=== PATIENT | male | born 1940 | race Caucasian/White ===

== ENCOUNTER → 2021-02-09 11:44 | Outpatient (BNVA) | payer MEDICARE, SELFPAY | PROVIDERS: Visit Provider Internal Medicine | DX: Z20.822 Contact with and (suspected) exposure to COVID-19 (principal); J06.9 Acute upper respiratory infection, unspecified | CPT/HCPCS: 87635 ==

== ENCOUNTER 2021-02-13 23:56 | Inpatient (IN) | payer MEDICARE, SELFPAY ==
[2021-02-13 23:58] VITALS: BP 139/84; PULSE 83; RESP 18; TEMP 36.8; O2SAT 97; BMI 24.4
[2021-02-14] VITALS (9 sets, daily range): BP systolic 105–149; BP diastolic 50–77; PULSE 57–77; RESP 16–20; TEMP 36.3–37.4; O2SAT 93–98; BMI 22.1
--- NOTE | 2021-02-14 00:02 | CTR_ITS ---
PROCEDURE INFORMATION: Exam: CT Head Without Contrast Exam date and time: 02/14/2021 12:02 AM Age: 80 years old Clinical indication: Injury or trauma; Blunt trauma (contusions or hematomas); Altered mental status/memory loss; Patient HX: Patient reported to have fallen one week ago and C/O headache with low back pain. Patient presents to er this morning with AMS. Patient appears confused and will not follow instructions. Covid + with fever. Unable to obtain further history. TECHNIQUE: Imaging protocol: Computed tomography of the head without contrast. Radiation optimization: All CT scans at this facility use at least one of these dose optimization techniques: automated exposure control; mA and/or kV adjustment per patient size (includes targeted exams where dose is matched to clinical indication); or iterative reconstruction. COMPARISON: No relevant prior studies available. RADIATION DOSE METRICS: Total DLP (mGy-cm): 856.91 FINDINGS: Brain: Mild age-appropriate atrophy. No evidence of intracranial hemorrhage, mass effect, midline shift or extra-axial fluid collections. Midline structures are normal. Hodges-white matter differentiation is normal. Cerebral ventricles: No ventriculomegaly. Paranasal sinuses: Mucosal thickening in the ethmoid sinuses. Mastoid air cells: Visualized mastoid air cells are well aerated. Vasculature: Carotid atherosclerotic calcification. Bones/joints: There is an old right lamina papyracea fracture. Soft tissues: Unremarkable. CT/CT head wo con* [id number] IMPRESSION: No acute intracranial abnormality. Radiation Dose CTDIVOL = (mGy): DLP = 856.91 (mGy-cm)
--- NOTE | 2021-02-14 00:02 | XRR_ITS ---
PROCEDURE INFORMATION: Exam: XR Chest Exam date and time: 02/14/2021 12:02 AM Age: 80 years old Clinical indication: Patient HX: Fever. Covid +. Patient altered. Unable to obtain history. TECHNIQUE: Imaging protocol: XR of the chest. Views: 1 view. COMPARISON: No relevant prior studies available. FINDINGS: Lungs: Bilateral mid to lower lung field mixed interstitial and airspace infiltrates. Pleural spaces: Unremarkable. No pleural effusion. No pneumothorax. Heart/Mediastinum: Unremarkable. No cardiomegaly. Bones/joints: Unremarkable. XR/XR chest 1V portable [id number] IMPRESSION: Bilateral mid to lower lung field mixed interstitial and airspace infiltrates.
--- NOTE | 2021-02-14 00:02 | CTR_ITS ---
PROCEDURE INFORMATION: Exam: CT Lumbar Spine Without Contrast Exam date and time: 02/14/2021 12:02 AM Age: 80 years old Clinical indication: Injury or trauma; Blunt trauma (contusions or hematomas); Patient HX: Patient reported to have fallen one week ago and C/O headache with low back pain. Patient presents to er this morning with AMS. Patient appears confused and will not follow instructions. Covid + with fever. Unable to obtain further history. ; Additional info: Fall TECHNIQUE: Imaging protocol: Computed tomography images of the lumbar spine without contrast. Radiation optimization: All CT scans at this facility use at least one of these dose optimization techniques: automated exposure control; mA and/or kV adjustment per patient size (includes targeted exams where dose is matched to clinical indication); or iterative reconstruction. COMPARISON: No relevant prior studies available. RADIATION DOSE METRICS: Total DLP (mGy-cm): 1444.18 FINDINGS: Vertebrae: Grade 1 anterolisthesis of L3 relative to L4 of 4.8 mm appears chronic and degenerative. Minimal grade 1 retrolisthesis of L5 relative the S1. L1-L2: No significant disc protrusion. No severe spinal canal stenosis. No significant neural foraminal narrowing. L2-L3: No significant disc protrusion. No severe spinal canal stenosis. No significant neural foraminal narrowing. L3-L4: No significant disc protrusion. No severe spinal canal stenosis. No significant neural foraminal narrowing. L4-L5: No significant disc protrusion. No severe spinal canal stenosis. No significant neural foraminal narrowing. L5-S1: No significant disc protrusion. No severe spinal canal stenosis. No significant neural foraminal narrowing. Soft tissues: Unremarkable. CT/CT lumbar spine wo con* [id number] IMPRESSION: 1. Negative for fracture or dislocation. 2. Grade 1 anterolisthesis of L3 relative to L4 of 4.8 mm appears chronic and degenerative. 3. Minimal grade 1 retrolisthesis of L5 relative the S1. Radiation Dose CTDIVOL = (mGy): DLP = 1444.18 (mGy-cm)
--- NOTE | 2021-02-14 00:11 | W.ED.AMS ---
HPI - Altered Mental Status General: Chief Complaint: Altered Mental Status Stated Complaint: AMS Time Seen by Provider: 02/14/21 00:01 Source: patient and EMS Mode of arrival: EMS Limitations: altered mental status History of Present Illness: HPI narrative: 80-year-old male who is here with altered mental status. Per EMS patient had a fall 1 week ago with complaint of headache and some back pain since then. He has been having some low-grade fevers and did test positive to the clinic 2 days ago. Family states today's became increasingly altered and weak. He has had difficulty walking due to his weakness. He is able to tell me his name but is unable to tell me the year but he does know where he is at. He denies any pain anywhere. Denies any headache or neck pain. Associated symptoms: Deny depression Review of Systems Const: Reports: fever(s) Eyes: Denies: blurry vision or eye discomfort ENMT: Denies: throat pain or dental pain Card: Denies: chest pain Resp: Denies: dyspnea GI: Denies: abdominal pain, nausea, vomiting or diarrhea : Denies: dysuria Musc: Denies: neck pain or back pain Skin/Breast: Denies: rash Neuro: Reports: weakness in extremities and confusion Psych: Denies: depression Thomas/Lymph: Denies: easy bruising All/Imm: Denies: urticaria PFSH ED PFSH: Medical History (Updated 02/14/21 @ 02:33 by Francisco Lemus MD) No pertinent past medical history Surgical History (Updated 02/14/21 @ 02:33 by Francisco Lemus MD) History of back surgery Family History (Updated 02/14/21 @ 02:34 by Francisco Lemus MD) Family/Other Lung cancer Other Diabetes Social History (Updated 02/14/21 @ 02:34 by Francisco Lemus MD) Smoking and tobacco status: former smoker Alcohol intake: never Substance/Drug Use: never Course Vital Signs: Vital signs: Vital Signs Temperature 98.2 F 02/13/21 23:58 Pulse Rate 76 02/14/21 02:08 Respiratory Rate 20 H 02/14/21 02:08 Blood Pressure 105/50 02/14/21 02:08 Pulse Oximetry 95 02/14/21 02:08 MDM - Altered Mental Status MDM Narrative: Medical decision making narrative: Presents with weakness confusion and COVID-19. I believe his Covid is likely causing his weakness and his confusion. He has no signs of meningitis here. Blood work and head CT are normal. Spoke to hospitalist and will admit at this time. Patient has been stable while in the ER. Lab Data: Labs: Lab Results 02/14/21 02/14/21 02/14/21 Range/Units 00:48 00:48 00:48 WBC 12.8 H (4.0-10.0) 10^3/ uL RBC 4.17 (4.1-5.3) 10^6/u L Hgb 13.1 (11.7-16.6) g/dL Hct 39.8 L (42.0-52.0) % MCV 95.4 H (80-94) fl MCH 31.4 (28.0-34.0) pg MCHC 32.9 (30.0-36.0) g/dL RDW 14.0 (12.1-15.1) % Plt Count 163 (130-400) 10^3/c mm MPV 9.7 (7.4-10.4) fL Neut % (Auto) 85.6 % Lymph % (Auto) 7.8 % [place] % (Auto) 5.6 % Eos % (Auto) 0.2 % Baso % (Auto) 0.1 % Neut # (Auto) 10.93 H (1.8-7.7) 10^3/u L Lymph # (Auto) 1.0 (0.8-4.8) 10^3/u L [place] # (Auto) 0.7 (0.2-0.9) 10^3/u L Eos # (Auto) 0.0 (0.0-0.8) 10^3/u L Baso # (Auto) 0.0 (0.0-0.1) 10^3/u L Nucleated RBC % (a uto) 0 % Nucleated RBCs # 0.0 /100WBC PT 13.80 (12.1-14.9) SECO NDS INR 1.03 (0.8-1.2) Sodium 134 L (136-145) mmol/L Potassium 4.2 (3.5-5.1) mmol/L Chloride 100 (98-107) mmol/L Carbon Dioxide 25 (22-29) mmol/L Anion Gap 13.2 (5-19) BUN 12 (8-23) mg/dL Creatinine 0.7 (0.7-1.2) mg/dL GFR Calculation Not Reportable Glucose 116 H (65-115) mg/dL Calculated Osmolal ity 279 L (285-295) mOsm/k g Lactate (0.5-2.2) mmol/L Calcium 9.2 (8.5-10.5) mg/dL Magnesium 1.6 L (1.7-2.3) mg/dL Total Bilirubin 0.6 (0.15-1.2) mg/dL AST 34 (0-40) U/L ALT 36 (0-41) U/L Alkaline Phosphata se 69 (40-130) IU/L Creatine Kinase 251 (39-308) U/L C-Reactive Protein 79.2 H (0.0-4.9) mg/L Total Protein 6.8 (6.6-8.7) g/dL Albumin 3.4 L (3.5-5.2) g/dL Globulin 3.4 (1.3-4.6) g/dL Urine Color (Yellow) Urine Appearance (CLEAR) Urine pH (5-7) Ur Specific Gravit y (1.005-1.030) Urine Protein (Negative) Urine Glucose (UA) (Normal) Urine Ketones (Negative) Urine Blood (Negative) Urine Nitrate (Negative) Urine Bilirubin (Negative) Urine Urobilinogen (Negative) mg/dL Ur Leukocyte Hedy ase (Negative) Ethyl Alcohol < 10 (0-10) mg/dL 02/14/21 02/14/21 Range/Units 00:48 00:56 WBC (4.0-10.0) 10^3/ uL RBC (4.1-5.3) 10^6/u L Hgb (11.7-16.6) g/dL Hct (42.0-52.0) % MCV (80-94) fl MCH (28.0-34.0) pg MCHC (30.0-36.0) g/dL RDW (12.1-15.1) % Plt Count (130-400) 10^3/c mm MPV (7.4-10.4) fL Neut % (Auto) % Lymph % (Auto) % [place] % (Auto) % Eos % (Auto) % Baso % (Auto) % Neut # (Auto) (1.8-7.7) 10^3/u L Lymph # (Auto) (0.8-4.8) 10^3/u L [place] # (Auto) (0.2-0.9) 10^3/u L Eos # (Auto) (0.0-0.8) 10^3/u L Baso # (Auto) (0.0-0.1) 10^3/u L Nucleated RBC % (a uto) % Nucleated RBCs # /100WBC PT (12.1-14.9) SECO NDS INR (0.8-1.2) Sodium (136-145) mmol/L Potassium (3.5-5.1) mmol/L Chloride (98-107) mmol/L Carbon Dioxide (22-29) mmol/L Anion Gap (5-19) BUN (8-23) mg/dL Creatinine (0.7-1.2) mg/dL GFR Calculation Glucose (65-115) mg/dL Calculated Osmolal ity (285-295) mOsm/k g Lactate 1.1 (0.5-2.2) mmol/L Calcium (8.5-10.5) mg/dL Magnesium (1.7-2.3) mg/dL Total Bilirubin (0.15-1.2) mg/dL AST (0-40) U/L ALT (0-41) U/L Alkaline Phosphata se (40-130) IU/L Creatine Kinase (39-308) U/L C-Reactive Protein (0.0-4.9) mg/L Total Protein (6.6-8.7) g/dL Albumin (3.5-5.2) g/dL Globulin (1.3-4.6) g/dL Urine Color Yellow (Yellow) Urine Appearance Clear (CLEAR) Urine pH 7 (5-7) Ur Specific Gravit y 1.005 (1.005-1.030) Urine Protein Neg (Negative) Urine Glucose (UA) Norm (Normal) Urine Ketones Negative (Negative) Urine Blood Neg (Negative) Urine Nitrate Negative (Negative) Urine Bilirubin Neg (Negative) Urine Urobilinogen 4 H (Negative) mg/dL Ur Leukocyte Hedy ase Negative (Negative) Ethyl Alcohol (0-10) mg/dL Imaging Data^: CT Head: Attestation: I personally reviewed and interpreted this imaging study as follows: Radiologist's impression: [facility] [address] [place] [address]. [place] [address] XRay Report Signed Patient: Willow Aviles Unit #: [id number] : 08/18/2020 Age/Sex: 05M 26D / M ADM Date: 02/13/21 Loc: ER Room/Bed: Attending Dr: Ordering Provider/Ordering MD: Maria Del Carmen Adams MD Date of Service: 02/13/21 Procedure(s): XR chest 2V* [id number] Accession Number(s): [id number] Report Number: [id number] PROCEDURE INFORMATION: Exam: XR Chest, 2 Views Exam date and time: 02/13/2021 10:07 PM Age: 5 months old Clinical indication: Cough and fever and other: Coughing up phlegm; Patient HX: Cough, fever; Coughed so much earlier -stopped breathing for a second according to mom TECHNIQUE: Imaging protocol: XR of the chest. Pediatric exam. Views: 2 views COMPARISON: No relevant prior studies available. FINDINGS: Lungs: Unremarkable. No consolidation. Pleural spaces: Unremarkable. No pleural effusion. No pneumothorax. Heart/Mediastinum: Unremarkable. Cardiothymic silhouette is within normal limits. Visualized airway is unremarkable. Bones/joints: Unremarkable. XR/XR chest 2V* [id number] IMPRESSION: No acute findings. Dictated By: Daisy Humphrey MD Signed By: Daisy Humphrey MD Signed Date/Time: 02/13/212308 DD/ [address]: Radiologist's impression: [facility] [address] [place] [address]. [place] [address] CT Scan Report Signed with Haroldo Patient: Fabricio Cisneros Unit #: [id number] : 1940 Age/Sex: 80 / M ADM Date: 02/13/21 Loc: ER Room/Bed: Attending Dr: Ordering Provider/Ordering MD: Maria Del Carmen Adams MD Date of Service: 02/14/21 Procedure(s): CT lumbar spine wo con* [id number] Accession Number(s): [id number] Report Number: [id number]/CT lumbar spine wo con* [id number] Moderate L3-L4 spinal canal narrowing and bilateral foraminal narrowing secondary to a broad-based disc bulge and described listhesis. Left L5/S1 moderate to severe left foraminal narrowing secondary to productive changes. Radiation Dose CTDIVOL = (mGy): DLP = 1444.18 (mGy-cm) Addendum Dictated By: Art Mcnair MD Addendum Signed By: Art Mcnair MD Signed Date/Time: 4 Addendum Cosigned By: PROCEDURE INFORMATION: Exam: CT Lumbar Spine Without Contrast Exam date and time: 02/14/2021 12:02 AM Age: 80 years old Clinical indication: Injury or trauma; Blunt trauma (contusions or hematomas); Patient HX: Patient reported to have fallen one week ago and C/O headache with low back pain. Patient presents to er this morning with AMS. Patient appears confused and will not follow instructions. Covid + with fever. Unable to obtain further history. ; Additional info: Fall TECHNIQUE: Imaging protocol: Computed tomography images of the lumbar spine without contrast. Radiation optimization: All CT scans at this facility use at least one of these dose optimization techniques: automated exposure control; mA and/or kV adjustment per patient size (includes targeted exams where dose is matched to clinical indication); or iterative reconstruction. COMPARISON: No relevant prior studies available. RADIATION DOSE METRICS: Total DLP (mGy-cm): 1444.18 FINDINGS: Vertebrae: Grade 1 anterolisthesis of L3 relative to L4 of 4.8 mm appears chronic and degenerative. Minimal grade 1 retrolisthesis of L5 relative the S1. L1-L2: No significant disc protrusion. No severe spinal canal stenosis. No significant neural foraminal narrowing. L2-L3: No significant disc protrusion. No severe spinal canal stenosis. No significant neural foraminal narrowing. L3-L4: No significant disc protrusion. No severe spinal canal stenosis. No significant neural foraminal narrowing. L4-L5: No significant disc protrusion. No severe spinal canal stenosis. No significant neural foraminal narrowing. L5-S1: No significant disc protrusion. No severe spinal canal stenosis. No significant neural foraminal narrowing. Soft tissues: Unremarkable. CT/CT lumbar spine wo con* [id number] IMPRESSION: 1. Negative for fracture or dislocation. 2. Grade 1 anterolisthesis of L3 relative to L4 of 4.8 mm appears chronic and degenerative. 3. Minimal grade 1 retrolisthesis of L5 relative the S1. 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
[2021-02-14] MEDS: LORazepam 2 mg/mL INJ 1 mL 0.5 MG IVP (00:40)
[2021-02-14] MEDS: acetaminophen 325 mg Tablet 650 MG PO (00:45)
[2021-02-14] MEDS: sodium chloride 0.9% 1,000 ML 999 ML IV (00:52)
[2021-02-14 01:01] LABS: Basophils % 0.1 %; Eosinophils % 0.2 %; Hematocrit 39.8 % (42.0-52.0); Hemoglobin 13.1 g/dL (11.7-16.6); Lymphocytes % 7.8 %; Mean Corpuscular HGB Conc 32.9 g/dL (30.0-36.0); Mean Corpuscular Hemoglobin 31.4 pg (28.0-34.0); Mean Corpuscular Volume 95.4 fl (80-94); Mean Platelet Volume 9.7 fL (7.4-10.4); Monocytes # 0.7 10^3/uL (0.2-0.9); Monocytes % 5.6 %; Neutrophils # 10.93 10^3/uL (1.8-7.7); Neutrophils % 85.6 %; Nucleated Red Blood Cells % 0 %; Platelet Count 163 10^3/cmm (130-400); Red Blood Count 4.17 10^6/uL (4.1-5.3); White Blood Count 12.8 10^3/uL (4.0-10.0)
[2021-02-14 01:06] LABS: Add Urine Microscopic? NO; Charge for UA Resulting for Rev
[2021-02-14 01:11] LABS: Bilirubin Urine Neg (Negative); Blood Urine Neg (Negative); Glucose Urine UA Norm (Normal); Ketones Urine Negative (Negative); Leukocyte Esterase Urine Negative (Negative); Nitrate Urine Negative (Negative); Protein Urine Neg (Negative); Specific Gravity, Urine 1.005 (1.005-1.030); Urine Appearance Clear (CLEAR); Urine Color Yellow (Yellow); Urobilinogen Urine 4 mg/dL (Negative); pH Urine 7 (5-7)
[2021-02-14 01:13] LABS: INR 1.03 (0.8-1.2)
[2021-02-14 01:18] LABS: Lactate (Lactic Acid level) 1.1 mmol/L (0.5-2.2)
[2021-02-14 01:19] LABS: Alanine Aminotransferase 36 U/L (0-41); Albumin Level 3.4 g/dL (3.5-5.2); Alkaline Phosphatase 69 IU/L (40-130); Anion Gap 13.2 (5-19); Aspartate Amino Transferase 34 U/L (0-40); Blood Urea Nitrogen 12 mg/dL (8-23); C Reactive Protein 79.2 mg/L (0.0-4.9); Calcium 9.2 mg/dL (8.5-10.5); Carbon Dioxide 25 mmol/L (22-29); Chloride 100 mmol/L (98-107); Creatine Phosphokinase 251 U/L (39-308); Creatinine Clr Calc Pharmacy 82.5196; Globulin 3.4 g/dL (1.3-4.6); Glucose 116 mg/dL (65-115); Magnesium 1.6 mg/dL (1.7-2.3); Osmolality Calculated 279 mOsm/kg (285-295); Potassium 4.2 mmol/L (3.5-5.1); Sodium 134 mmol/L (136-145); Total Bilirubin 0.6 mg/dL (0.15-1.2); Total Protein 6.8 g/dL (6.6-8.7)
[2021-02-14 01:32] LABS: Alcohol Level < 10 mg/dL (0-10)
--- NOTE | 2021-02-14 02:26 | P.HP_ITS ---
Providers/Chief Complaint Chief Complaint: AMS History of Present Illness Fabricio Cisneros is a 80 year old male with no significant past medical history, who presents to [facility] due to concerns for altered mental status. Currently patient is alert to person, not to place, not to time, he does follow commands, is quite agitated, does not want to answer questions, keeps red irecting my answers, he was able to get up with the nursing staff up to the side of the bed, and use a urinal, and sit into a chair, now back in bed, and want to go back to sleep. When asked him why he is here in the hospital, he tells me why am I here in the hospital and he keeps repeating what I say to him. Most of the history was obtained by patient's , who tells me that patient is quite healthy, he has not had any ER visits or hospitalizations in over a year, has not seen a physician in many years, does not have any health problems, she does notice that he has some degree of dementia and his memory has been declining over the last year or so. She tells me that on Sunday, he went to [facility], to work on on home, he fell, he told his that he did blackout, was found on the lawn by a neighbor, who helped him up to his feet. He did not seek medical attention, he was able to drive back home, he had no particular complaints throughout the week to his . However on the , he started to feel unwell, with fatigue, malaise, low-grade fevers and he tested positive for Covid. On Sunday he also was not feeling well, but no particular symptoms, the he was able to go with his and run chores. He did not drive, she drove, as he was not feeling well. Starting Sunday morning, she noticed that he started acting quite confused, she tells me he was out of his head, he was answering questions appropriately, he was quite confused, she did not notice any slurring of his speech, no facial droop, but he did have weakness in bilateral lower extremities, no seizure-like episodes, no urinary bowel incontinence, he has never had a stroke, no chest pain complaints, no shortness of breath complaints, he has not had a UTI, no history of pneumonia, work-up in the emergency room showed CT of the head no acute stroke no acute bleed, no significant electrolyte abnormalities, chest x-ray does show interstitial infiltrates, his blood alcohol level is within normal limits, his lumbar CT showed disc bulging L3-L4, L4-L5 spinal canal lowering, he has not had any com plaints of back pain. Currently patient is alert to person, not to place, not to time, he is able to follow commands, but does want to go back to sleep, I did observe patient to get up to the side of the bed with help of nursing staff, was able to stand leading up to the bed, able to use a urinal, I cannot discern any facial droop, no slurring of his speech, no focal neurologic deficits, does have some word finding difficulty and some degree of receptive aphasia, NIH stroke scale 1, his last known normal normal was Sunday night, his thought he might of had a stroke because he was complaining of weakness in his legs. Review of Systems General: Reports: ROS unobtainable due to mental status Medications/Allergies Home Medications Medication Instructions Recorded Confirmed Last Taken Type No Known Home Medications 02/09/21 02/09/21 Unknown History Allergies Allergy/AdvReac Type Severity Reaction Status Date / Time No Known Allergies Allergy Unverified 02/09/21 11:29 PFSH Acute PFSH: Medical History (Updated 02/14/21 @ 02:33 by Francisco Lemus MD) No pertinent past medical history Surgical History (Updated 02/14/21 @ 02:33 by Francisco Lemus MD) History of back surgery Family History (Updated 02/14/21 @ 02:34 by Francisco Lemus MD) Family/Other Lung cancer Other Diabetes Social History (Updated 02/14/21 @ 02:34 by Francisco Lemus MD) Smoking and tobacco status: former smoker Alcohol intake: never Substance/Drug Use: never Vitals/I&O/Wt Last Vital Signs Temp 98.2 F 02/13/21 23:58 Pulse 76 02/14/21 02:08 Resp 20 H 02/14/21 02:08 BP 105/50 02/14/21 02:08 Pulse Ox 95 02/14/21 02:08 Weight last 48 hrs Weight 81.647 kg Physical Exam Const: COMMON NORMALS: no acute distress GENERAL APPEARANCE: cooperative and comfortable ORIENTATION/CONSCIOUSNESS: Yes awake, Yes oriented to person and Yes confused; not oriented to place and not oriented to time HENMT: COMMON NORMALS: normocephalic HEAD & SCALP: normocephalic Eye: COMMON NORMALS: Equal, round and reactive pupils present and EOMs intact bilaterally GENERAL EYE: appearance normal, both eyes and all related structures PUPIL: Yes Equal, round and reactive pupils present Neck/C-Spine: COMMON NORMALS: full ROM and no lymphadenopathy THYROID: Thyroid normal Lymph: LYMPHATIC: no lymphadenopathy noted Resp: COMMON NORMALS: normal respiratory effort, No retractions, No use of accessory muscles and clear to auscultation bilaterally AUSCULTATION: clear to auscultation bilaterally Cardio: COMMON NORMALS: regular rate, regular rhythm, S1 normal heart sound present, S2 normal heart sound present, No gallops present (Cardio), No clicks present (Cardio) and No murmurs present (Cardio) RATE: regular rate RHYTHM: regular rhythm HEART SOUNDS: S1 normal heart sound present and S2 normal heart sound present GI: COMMON NORMALS: Normal to inspection, nondistended, normoactive bowel sounds present, Soft to palpation, non-tender and No hepatosplenomegaly present PALPATION: Yes Soft to palpation and Yes No hepatosplenomegaly present Extremity: COMMON NORMALS: normal to inspection, full ROM and no pedal edema Neuro: COMMON NORMALS: CN's II-XII intact bilaterally, moves all extremities a nd no focal motor deficits SENSORIUM/ORIENTATION: Yes alert, Yes oriented to person, No oriented to place, No oriented to time and Yes fluctuating sensorium COORDINATION/BALANCE: No [id number] test normal (Does not want to follow neurologic testing to do [id number] test) SPEECH: speech normal, expressive aphasia (Some degree of expressive aphasia) and receptive aphasia (Some degree of receptive aphasia) MOTOR EXAM: 5/5 motor strength present throughout (Difficult to do strength testing, as patient gets agitated with testing) OTHER: No gross deficits in upper or lower extremities he was able to stand and use a urinal Data : 02/14/21 00:48 02/14/21 00:48 A&P Assessment and plan (1) Altered mental status: -Etiology unclear at this time -Blood alcohol level within normal limits -Ammonia levels pending -No significant electrolyte abnormalities, no evidence of dehydration -UA no intake significant UTI -Chest x-ray does show interstitial infiltrates related to Covid infection, but not requiring any oxygen, afebrile, does have leukocytosis, pro-[place], CRP pending -CT of the head negative for intracranial bleed, or acute stroke - does say that he had complaints of weakness, does have several degree of word finding difficulty receptive aphasia -I am suspicious to some degree of a stroke, as patient was completely normal and then suddenly on Sunday his mentation significantly changed Plan: -We will treat this as a possible stroke, out of TPA window, and a stroke scale 1 -Neurochecks, NIH stroke scales -Allow for permissive hypertension -Aspirin, statin, IV fluids -CTA of the head and neck, cardiac echo, telemetry monitoring -Given his chest x-ray findings, will start him on Rocephin and azithromycin for possible atypical pneumonia -Continue to monitor mentation -Full code -Lovenox for DVT prophylaxis COVID-19 positive -Is not exactly clear if COVID-19 is playing a role in his altered mental status, possible brain fog associated with COVID-19? -If indeed COVID-19 is not playing a role in his altered mental status, he will qualify for bam infusion CT lumbar spine Moderate L3-L4 spinal canal narrowing and bilateral foraminal narrowing secondary to a broad-based disc bulge and described listhesis. Left L5/S1 moderate to severe left foraminal narrowing secondary to productive changes. 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
--- NOTE | 2021-02-14 02:42 | PC.NURSE ---
report called to Lindsey MCCAULEY
[2021-02-14 02:51] LABS: Troponin(5th) Baseline 25 ng/L (0-15)
[2021-02-14 02:59] LABS: NT Pro B Type Natriuretic Pept 510 pg/mL (0-450)
--- NOTE | 2021-02-14 03:04 | USCV_ITS ---
Fabricio Cisneros Age: 80 Gender: M : 1940 Exam Date: 02/14/2021 06:38 Ordering Phys: Francisco Lemus MD Technologist: Odette Rahman [place] [facility] [place]: AMS BP: 106 / 69 HR: 77 Rhythm: Sinus Technical Quality: Technically difficult study MEASUREMENTS (Male / Female) Normal Values 2D ECHO LVOT Diameter 2.0 cm LV Ejection Fraction MOD 2C 52.2 % LV Ejection Fraction 2C AL 47.4 % LA Diameter 2.7 cm LA Width 3.1 cm LA Height 3.2 cm RA Width 3.6 cm RA Height 3.3 cm Aorta at Sinotubular Diameter 2.4 cm DOPPLER AV Peak Velocity 118.0 cm/s LVOT Peak Velocity 101.0 cm/s AV Area Cont Eq vti 3.5 cm squared AV Area Cont Eq pk 2.7 cm squared MV Peak Velocity 95.0 cm/s MV Area PHT 4.9 cm squared Mitral E to A Ratio 0.9 MV E' Velocity 42.0 cm/s Mitral E to MV E' Ratio 7.6 Mitral E to LV E' Lateral Ratio 8.1 Mitral E to LV E' Septal Ratio 7.1 Right Atrial Pressure 3.0 mmHg PV Peak Velocity 90.0 cm/s RV Acceleration Time 0.1 s RV Ejection Time 0.3 s RV AcT/ET 0.3 FINDINGS Left Ventricle Normal left ventricular cavity size. Normal left ventricular systolic function. No regional wall motion abnormalities. Left ventricular ejection fraction is estimated at 60 %. Grade I/IV diastolic dysfunction (abnormal relaxation filling pattern), normal to mildly elevated filling pressures. Right Ventricle The right ventricle is normal in size and function. RVSP could not be calculated due to incomplete tricuspid regurgitation velocity profile. Right Atrium The right atrium is normal in size. Left Atrium The left atrium is normal in size. Mitral Valve Structurally normal mitral valve without significant stenosis or prolapse. There is no mitral regurgitation. Aortic Valve Structurally normal aortic valve without significant sclerosis or stenosis. There is no aortic regurgitation. Tricuspid Valve Structurally normal tricuspid valve without significant stenosis or regurgitation. Pulmonic Valve Structurally normal pulmonic valve without significant stenosis. There is no pulmonic regurgitation. Pericardium Normal pericardium without effusion. Aorta Normal ascending aorta dimension. CONCLUSIONS 1-Normal left ventricular cavity size. Normal left ventricular systolic function. No regional wall motion abnormalities. Left ventricular ejection fraction is estimated at 60 %. Grade I/IV diastolic dysfunction (abnormal relaxation filling pattern), normal to mildly elevated filling pressures. 2-There is no pericardial effusion. 3-No significant valve abnormalities. 4-The right ventricle is normal in size and function. RVSP could not be calculated due to incomplete tricuspid regurgitation velocity profile. 5-There is no pericardial effusion. 6-Right atrial pressure is around 5 mm of mercury. 7-There are no prior echocardiogram studies to compare. Aman Epps MD (Electronically Signed) Final Date: 14 February 2021 19:42 S
--- NOTE | 2021-02-14 03:04 | CTR_ITS ---
PROCEDURE INFORMATION: Exam: CT Angiography Head With Contrast, Arteriography Exam date and time: 02/14/2021 3:04 AM Age: 80 years old Clinical indication: Cognitive deficit and weakness; Altered mental status; Patient HX: Continued AMS. Mild aphasia. Reported lower leg weakness per pt's . ; Additional info: AMS, b/l lower extremity weakness TECHNIQUE: Imaging protocol: Computed tomography angiography of the head with contrast. Exam focused on the arteries. 3D rendering (Not supervised by radiologist): MIP and/or 3D reconstructed images were created by the technologist. Radiation optimization: All CT scans at this facility use at least one of these dose optimization techniques: automated exposure control; mA and/or kV adjustment per patient size (includes targeted exams where dose is matched to clinical indication); or iterative reconstruction. Contrast material: OMNI 350; Contrast volume: 95 ml; Contrast route: INTRAVENOUS (IV); COMPARISON: CT head wo con* [id number] 02/14/2021 12:18 AM RADIATION DOSE METRICS: Total DLP (mGy-cm): 1330.32 FINDINGS: ANTERIOR CIRCULATION: Right internal carotid artery: Unremarkable. Intracranial segment is patent with no significant stenosis. No aneurysm. Right middle cerebral artery: Unremarkable. No occlusion or significant stenosis. No aneurysm. Right anterior cerebral artery: Unremarkable. No occlusion or significant stenosis. No aneurysm. Left internal carotid artery: Unremarkable. Intracranial segment is patent with no significant stenosis. No aneurysm. Left middle cerebral artery: Unremarkable. No occlusion or significant stenosis. No aneurysm. Left anterior cerebral artery: Unremarkable. No occlusion or significant stenosis. No aneurysm. POSTERIOR CIRCULATION: Right vertebral artery: Unremarkable. No occlusion or significant stenosis. No aneurysm. Left vertebral artery: Unremarkable. No occlusion or significant stenosis. No aneurysm. Basilar artery: Unremarkable. No occlusion or significant stenosis. No aneurysm. Right posterior cerebral artery: Unremarkable. No occlusion or significant stenosis. No aneurysm. 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 Brain: No definite mass, mass effect, or midline shift. Cerebral ventricles: No ventriculomegaly. Bones/joints: Unremarkable. No acute fracture. Soft tissues: Unremarkable. IMPRESSION: No acute vascular abnormality. PROCEDURE INFORMATION: Exam: CT Angiography Neck With Contrast Exam date and time: 02/14/2021 3:04 AM Age: 80 years old Clinical indication: Cognitive deficit and weakness; Altered mental status; Patient HX: Continued AMS. Mild aphasia. Reported lower leg weakness per pt's . ; Additional info: AMS, b/l lower extremity weakness TECHNIQUE: Imaging protocol: Computed tomography angiography of the neck with contrast. 3D rendering (Not supervised by radiologist): MIP and/or 3D reconstructed images were created by the technologist. Radiation optimization: All CT scans at this facility use at least one of these dose optimization techniques: automated exposure control; mA and/or kV adjustment per patient size (includes targeted exams where dose is matched to clinical indication); or iterative reconstruction. Contrast material: OMNI 350; Contrast volume: 95 ml; Contrast route: INTRAVENOUS (IV); COMPARISON: CT head wo con* [id number] 02/14/2021 12:18 AM RADIATION DOSE METRICS: Total DLP (mGy-cm): 1330.32 FINDINGS: Right common carotid artery: No stenosis. No dissection or occlusion. Right internal carotid artery: No stenosis of the extracranial segment. No dissection or occlusion. Right external carotid artery: No occlusion or stenosis of the origin. Left common carotid artery: The left common carotid artery originates from the brachiocephalic trunk. Left internal carotid artery: No stenosis of the extracranial segment. No dissection or occlusion. Left external carotid artery: No occlusion or stenosis of the origin. Right vertebral artery: No stenosis. No dissection or occlusion. Left vertebral artery: No stenosis. No dissection or occlusion. Soft tissues: Normal. No significant soft tissue swelling. Bones/joints: No acute fracture. CT/CT angio headneck* [id number] IMPRESSION: No acute vascular abnormality. REFERENCES: NASCET CRITERIA. The degree of internal carotid artery stenosis is based on NASCET criteria. Normal is no stenosis. Mild is less than 50% stenosis. Moderate is 50-69% stenosis. Severe is 70% to 99% stenosis. Total occlusion is no detectable patent lumen. Radiation Dose CTDIVOL = (mGy): DLP = 1330.32~1330.32 (mGy-cm)
[2021-02-14 03:13] LABS: Ammonia 34 umol/L (16-60)
[2021-02-14] MEDS: iohexol 350 mg/mL 100 mL Btl IV (03:46)
[2021-02-14] MEDS: enoxaparin 40 mg/0.4 mL Syringe SUBCUT (03:54)
[2021-02-14] MEDS: cefTRIAXone 1,000 MG in sodium chloride 0.9% (plus) 50 ML 100 MG IV (03:54)
[2021-02-14 03:55] LABS: Troponin 5 2HR 26.79 ng/L (0-15); Troponin 5 2HR Delta 1.79 ABS# (0-10)
[2021-02-14] MEDS: sodium chloride 0.9% 1,000 ML 75 ML IV ×2 (03:55→20:21)
[2021-02-14 04:02] LABS: Thyroid Stimulating Hormone 0.94 uIU/mL (0.27-4.20)
--- NOTE | 2021-02-14 04:22 | ECG_ITS ---
[facility] Test Date: 2021-02-14 Pat Name: Fabricio Cisneros Department: Room: 279 Gender: Male Utility Locate Technician: : 1940 Requested By: Francisco Lemus Order Number: [id number] Reading MD: Measurements Intervals [place] Rate: 73 P: 74 UT: 169 QRS: 2 QRSD: 92 T: 67 QT: 365 QTc: 404 Interpretive Statements SINUS RHYTHM POSSIBLE RIGHT VENTRICULAR CONDUCTION DELAY [RSR (QR) IN V1/V2] No previous ECG available for comparison [id number]
[2021-02-14] MEDS: azithromycin 500 MG in sodium chloride 0.9% 250 ML 250 MG IV (04:44)
[2021-02-14 07:43] LABS: Troponin 5 6HR 24.98 ng/L (0-15)
--- NOTE | 2021-02-14 07:50 | PC.PHAR ---
pts [facility] verified medications-pts [facility] states the pt takes no rx medications-no meds pull up on ext med history
[2021-02-14 07:56] LABS: Troponin 5 6HR Delta -0.02 ng/L (0-12)
[2021-02-14] MEDS: famotidine 20 mg Tablet PO ×2 (07:59→18:15)
--- NOTE | 2021-02-14 09:08 | P.PN_ITS ---
Subjective Subjective: Interval history: Patient was seen this morning, no slurring with speech, no facial droop, is alert to person, not to place, not to time, he is quite agitated with all the questions I am asking, he does not want to follow neurologic testing, he tells me he wants to be left alone to go back to sleep, he has no complaints, he is moving both upper and lower extremities, afebrile overnight normotensive on room air Vitals/I&O/Wt Last Vital Signs Temp 99.4 F 02/14/21 07:58 Pulse 77 02/14/21 07:58 Resp 17 02/14/21 07:58 BP 139/77 02/14/21 07:58 Pulse Ox 93 02/14/21 07:58 02/13/21 02/14/21 02/14/21 22:59 06:59 14:59 Intake Total 300 / 300 Balance 300 / 300 Weight last 48 hrs Weight 74.072 kg Weight 81.647 kg Physical Exam Const: COMMON NORMALS: no acute distress ORIENTATION/CONSCIOUSNESS: Yes awake, Yes oriented to person and Yes confused; not oriented to place and not oriented to time Resp: COMMON NORMALS: normal respiratory effort, No retractions, No use of accessory muscles and clear to auscultation bilaterally AUSCULTATION: clear to auscultation bilaterally Cardio: COMMON NORMALS: regular rate, regular rhythm, S1 normal heart sound present and S2 normal heart sound present RATE: regular rate RHYTHM: regular rhythm HEART SOUNDS: S1 normal heart sound present and S2 normal heart sound present GI: COMMON NORMALS: Normal to inspection, nondistended, normoactive bowel sounds present, Soft to palpation and non-tender PALPATION: Yes Soft to palpation Extremity: COMMON NORMALS: no pedal edema Neuro: SENSORIUM/ORIENTATION: Yes oriented to person, No oriented to place and No oriented to time OTHER: Will not follow neurologic testing, but is moving upper and lower extremities, no facial droop, slurring of her speech, Data : 02/14/21 00:48 02/14/21 00:48 Micro: Microbiology 02/14/21 00:44 Blood Culture - Preliminary Blood SPECIMEN COLLECTED 02/14/21 00:33 Blood Culture - Preliminary Blood SPECIMEN COLLECTED A&P Assessment and plan (1) Altered mental status: -Etiology unclear at this time -Blood alcohol level within normal limits -Ammonia levels pending -No significant electrolyte abnormalities, no evidence of dehydration -UA no intake significant UTI -Chest x-ray does show interstitial infiltrates related to Covid infection, but not requiring any oxygen, afebrile, does have leukocytosis, pro-Everton, CRP pending -CT of the head negative for intracranial bleed, or acute stroke -CTA no hemodynamically significant stenosis, no acute vascular abnormality - does say that he had complaints of weakness, does have several degree of word finding difficulty receptive aphasia -I am suspicious to some degree of a stroke, as patient was completely normal and then suddenly on Sunday morning his mentation significantly changed Plan: -We will treat this as a possible stroke, out of TPA window, and a stroke scale 1 -Neurochecks, NIH stroke scales -Allow for permissive hypertension -Aspirin, statin, IV fluids -cardiac echo, telemetry monitoring -Given his chest x-ray findings, will start him on Rocephin and azithromycin for possible atypical pneumonia -Follow blood cultures, sputum cultures, urine bacterial antigens -Continue to monitor mentation -Patient's does tell me that he has some degree of dementia, that has been progressively worsening over the last year -PT OT, speech therapy eval -Full code -Lovenox for DVT prophylaxis COVID-19 positive -Is not exactly clear if COVID-19 is playing a role in his altered mental status, possible brain fog associated with COVID-19? -If indeed COVID-19 is not playing a role in his altered mental status, he will qualify for bam infusion CT lumbar spine Moderate L3-L4 spinal canal narrowing and bilateral foraminal narrowing secondary to a broad-based disc bulge and described listhesis. Left L5/S1 moderate to severe left foraminal narrowing secondary to productive changes. 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
[2021-02-14] MEDS: haloperidol inj 5 mg/mL INJ 1 mL 1 MG IM ×2 (11:38→18:20)
[2021-02-14] MEDS: LORazepam 2 mg/mL INJ 1 mL 1 MG IM (12:25)
--- NOTE | 2021-02-14 13:18 | PC.NURSE ---
OT helped him brush his teeth and brush patient hair
--- NOTE | 2021-02-14 16:20 | PC.SLP ---
Pt refused to try food for the dysphagia evaluation.
[2021-02-15] VITALS (8 sets, daily range): BP systolic 97–150; BP diastolic 61–86; PULSE 24–77; RESP 14–73; TEMP 36.3–36.7; O2SAT 95–96
[2021-02-15] MEDS: atorvastatin 40 mg Tablet PO (02:44)
[2021-02-15] MEDS: enoxaparin 40 mg/0.4 mL Syringe SUBCUT (02:44)
[2021-02-15] MEDS: aspirin 81 mg EC Tablet PO (02:44)
[2021-02-15] MEDS: azithromycin 500 MG in sodium chloride 0.9% 250 ML 250 MG IV (02:44)
[2021-02-15] MEDS: cefTRIAXone 1,000 MG in sodium chloride 0.9% (plus) 50 ML 100 MG IV (04:34)
[2021-02-15 05:34] LABS: Basophils % 0.2 %; Eosinophils # 0.2 10^3/uL (0.0-0.8); Eosinophils % 3.8 %; Hemoglobin 12.4 g/dL (11.7-16.6); Lymphocytes # 1.4 10^3/uL (0.8-4.8); Lymphocytes % 23.5 %; Mean Corpuscular HGB Conc 32.6 g/dL (30.0-36.0); Mean Corpuscular Hemoglobin 31.1 pg (28.0-34.0); Mean Corpuscular Volume 95.2 fl (80-94); Mean Platelet Volume 9.5 fL (7.4-10.4); Monocytes # 0.4 10^3/uL (0.2-0.9); Monocytes % 6.7 %; Neutrophils # 3.93 10^3/uL (1.8-7.7); Neutrophils % 65.5 %; Nucleated Red Blood Cells % 0 %; Platelet Count 185 10^3/cmm (130-400); Red Blood Count 3.99 10^6/uL (4.1-5.3); Red Cell Distribution Width 14.1 % (12.1-15.1)
[2021-02-15 05:55] LABS: Alanine Aminotransferase 27 U/L (0-41); Alkaline Phosphatase 61 IU/L (40-130); Anion Gap 10.8 (5-19); Aspartate Amino Transferase 26 U/L (0-40); Blood Urea Nitrogen 12 mg/dL (8-23); C Reactive Protein 193.9 mg/L (0.0-4.9); Calcium 9.3 mg/dL (8.5-10.5); Carbon Dioxide 25 mmol/L (22-29); Chloride 107 mmol/L (98-107); Glucose 86 mg/dL (65-115); Magnesium 1.9 mg/dL (1.7-2.3); Osmolality Calculated 287 mOsm/kg (285-295); Phosphorus 2.2 mg/dL (2.5-4.5); Potassium 3.8 mmol/L (3.5-5.1); Sodium 139 mmol/L (136-145); Total Bilirubin 0.5 mg/dL (0.15-1.2)
[2021-02-15 06:00] LABS: Procalcitonin 0.83 ng/mL (0-0.5)
[2021-02-15] MEDS: famotidine 20 mg Tablet PO ×2 (08:51→18:40)
[2021-02-15] MEDS: sodium chloride 0.9% 1,000 ML 75 ML IV (08:52)
[2021-02-15] MEDS: amlodipine 10 mg Tablet PO (12:25)
[2021-02-15] MEDS: vancomycin 1,000 MG in sodium chloride 0.9% 250 ML 250 MG IV (13:54)
[2021-02-15 14:24] LABS: Erythrocyte Sedimentation Rate 28 mm/hr (0-10)
--- NOTE | 2021-02-15 15:47 | MRR_ITS ---
PROCEDURE INFORMATION: Exam: MR Head Without Contrast Exam date and time: 02/15/2021 3:47 PM Age: 80 years old Clinical indication: Altered mental status/memory loss; Patient HX: Covid positive; Additional info: AMS TECHNIQUE: Imaging protocol: MR of the head without contrast. COMPARISON: CT head wo con* [id number] 02/14/2021 12:18 AM FINDINGS: Limitations: Image quality is limited by motion artifact. Brain: There is volume loss and T2/FLAIR periventricular and subcortical bright signal intensity compatible with chronic small vessel disease changes. No acute infarct. No hemorrhage. No mass effect. No edema. Cerebral ventricles: Normal. No ventriculomegaly. Bones/joints: Unremarkable. Paranasal sinuses: Normal as visualized. No acute sinusitis. Mastoid air cells: Normal as visualized. No mastoid effusion. Orbital cavity: Unremarkable. Soft tissues: Unremarkable. MR/MR head wo con* [id number] IMPRESSION: No acute findings.
--- NOTE | 2021-02-15 16:45 | PM.PN ---
Subjective Subjective: Interval history: Patient was seen this morning, he has a sitter at bedside, he is alert to person, to place, not to time, COVID-19 he is able to follow commands is actually able to stand up to the side of the bed for me, however his responses are quite confusing, at times he is quite agitated with my questioning, he wants to know why these questions are so important, he knows his name, knows his birthdate he knows his name, he tells me the whole story about how to roll [place], to check on his property, and he fell, he thought it was mechanical fall, denies preceding lightheadedness, dizziness, no fevers, chills, no nausea, no vomiting, he tells me that he believes and him have been taking care of his grandkids, no slurring of speech, no facial droop, does report a 20 pound weight loss Vitals/I&O/Wt Last Vital Signs Temp 98.0 F 02/15/21 15:24 Pulse 62 02/15/21 15:24 Resp 14 02/15/21 15:24 BP 114/61 02/15/21 15:24 Pulse Ox 96 02/15/21 15:24 02/15/21 02/15/21 02/15/21 06:59 14:59 22:59 Intake Total 300.000 / 2300.000 1987.50 / 1987.50 Output Total 600 / 750 200 / 200 Balance -300.000 / 4186.669 2053.50 / 1787.50 Weight last 48 hrs Weight 74.072 kg Weight 81.647 kg Physical Exam Const: COMMON NORMALS: no acute distress GENERAL APPEARANCE: cooperative ORIENTATION/CONSCIOUSNESS: Yes awake, Yes oriented to person, Yes oriented to place and Yes confused; not oriented to time HENMT: COMMON NORMALS: normocephalic HEAD & SCALP: normocephalic Neck/C-Spine: COMMON NORMALS: no JVD Resp: COMMON NORMALS: normal respiratory effort, No retractions, No use of accessory muscles and clear to auscultation bilaterally AUSCULTATION: clear to auscultation bilaterally Cardio: COMMON NORMALS: no JVD, regular rate, regular rhythm, S1 normal heart sound present and S2 normal heart sound present RATE: regular rate RHYTHM: regular rhythm HEART SOUNDS: S1 normal heart sound present and S2 normal heart sound present GI: COMMON NORMALS: Normal to inspection, nondistended, normoactive bowel sounds present, Soft to palpation, non-tender, No hepatosplenomegaly present, no masses and no bruits PALPATION: Yes Soft to palpation and Yes No hepatosplenomegaly present Extremity: COMMON NORMALS: capillary refill normal, no clubbing, cyanosis or edema, no calf tenderness and no pedal edema Neuro: SENSORIUM/ORIENTATION: Yes oriented to person, Yes oriented to place and No oriented to time Psych: COMMON NORMALS: mental status grossly normal Data : 02/15/21 05:25 02/15/21 05:25 Micro: Microbiology 02/14/21 18:32 Gram Stain - Final Sputum - Expectorated Sputum 02/14/21 10:46 Urine Culture - Preliminary Urine,Voided 02/14/21 00:44 Blood Culture - Preliminary Blood NEGATIVE TO DATE 02/14/21 00:33 Blood Culture - Preliminary Blood NEGATIVE TO DATE A&P Assessment and plan (1) Altered mental status: -Etiology unclear at this time -Blood alcohol level within normal limits -Ammonia levels negative -No significant electrolyte abnormalities, no evidence of dehydration -UA no intake significant UTI -Chest x-ray does show interstitial infiltrates related to Covid infection, but not requiring any oxygen, afebrile, does have leukocytosis, pro-Everton -CT of the head negative for intracranial bleed, or acute stroke -CTA head and neck no acute vascular abnormalities -Cardiac echocardiogram 1-Normal left ventricular cavity size. Normal left ventricular systolic function. No regional wall motion abnormalities. Left ventricular ejection fraction is estimated at 60 %. Grade I/IV diastolic dysfunction (abnormal relaxation filling pattern), normal to mildly elevated filling pressures. 2-There is no pericardial effusion. 3-No significant valve abnormalities. 4-The right ventricle is normal in size and function. RVSP could not be calculated due to incomplete tricuspid regurgitation velocity profile. 5-There is no pericardial effusion. 6-Right atrial pressure is around 5 mm of mercury. - does say that he had complaints of weakness, does have several degree of word finding difficulty receptive aphasia -No focal neurologic deficits, no word finding difficulty, no receptive aphasia today -CRP 195, pro-Everton 0.83 -Cultures so far negative Plan: -We will treat this as a possible stroke, out of TPA window, and a stroke scale 1 -Neurochecks, NIH stroke scales -Start Norvasc -Aspirin, statin, -Given his chest x-ray findings, will start him on Rocephin and azithromycin for possible atypical pneumonia -Continue to monitor mentation -Will order MRI of the brain -if his mentation and continues to be altered, will do a lumbar puncture -Full code -Lovenox for DVT prophylaxis COVID-19 positive -Is not exactly clear if COVID-19 is playing a role in his altered mental status, possible brain fog associated with COVID-19? -If indeed COVID-19 is not playing a role in his altered mental status, he will qualify for bam infusion CT lumbar spine Moderate L3-L4 spinal canal narrowing and bilateral foraminal narrowing secondary to a broad-based disc bulge and described listhesis. Left L5/S1 moderate to severe left foraminal narrowing secondary to productive changes. Status: Acute Qualifiers: Altered mental status type: unspecified Qualified Code(s): R41.82 - Altered mental status, unspecified (2) COVID-19: Status: Acute Attestations Medical Necessity Statement*: Requires hospitalization for altered mental status Coding Level of Care Code Acute Qual Research Manager for [facility] Fwd Diagnoses Altered mental status R41.82 Altered mental status type: unspecified COVID-19 U07.1
--- NOTE | 2021-02-15 17:01 | PC.NURSE ---
MRI screening form completed with spouse over the phone and placed in patient's chart. No issues found.
--- NOTE | 2021-02-15 17:51 | PC.NURSE ---
patient left via ambulance for MRI.
[2021-02-15 21:04] LABS: Glucose Point of Care 131 mg/dL (70-110)
--- NOTE | 2021-02-15 21:32 | PC.NURSE ---
Nurse relieved sitter at 1919, Patient was resting in bed with eyes closed. At 1929 patient awoke and asked Nurse if she had fixed the car. Pt appeared to be confused. He was able to answer some orientation questions such as name and but pt was unsure where he was. Vital signs WNL at this time. Pt stated he needed to urinate, Nurse assisted pt to the bathroom, pt was able to bear his own weight but his gait was unsteady. PT was agitated with Nurse's assistance. Nurse had to reorient patient several times while assisting pt back to bed. PT attempted to remove his IV, Nurse redirected patient, educated pt about his IV access and re-dressed IV site. PT talked to himself randomly in bed and pointed to the window and asked nurse to close the double doors. PT also asked Nurse to tell those kids to go to sleep Nurse explained again that he was in the hospital. Pt fell asleep around 2139. Nurse will continue to monitor for safety.
[2021-02-16] MEDS: vancomycin 1,000 MG in sodium chloride 0.9% 250 ML 250 MG IV (00:30)
[2021-02-16] MEDS: cefTRIAXone 1,000 MG in sodium chloride 0.9% (plus) 50 ML 100 MG IV (03:42)
[2021-02-16] MEDS: atorvastatin 40 mg Tablet PO (03:42)
[2021-02-16 04:00] VITALS: BP 148/79; PULSE 54; RESP 16; TEMP 36.5; O2SAT 96
[2021-02-16 05:43] LABS: Basophils % 0.5 %; Eosinophils # 0.2 10^3/uL (0.0-0.8); Eosinophils % 5.5 %; Hematocrit 36.8 % (42.0-52.0); Hemoglobin 11.7 g/dL (11.7-16.6); Lymphocytes # 1.4 10^3/uL (0.8-4.8); Lymphocytes % 33.7 %; Mean Corpuscular HGB Conc 31.8 g/dL (30.0-36.0); Mean Corpuscular Hemoglobin 30.7 pg (28.0-34.0); Mean Corpuscular Volume 96.6 fl (80-94); Mean Platelet Volume 9.4 fL (7.4-10.4); Monocytes # 0.3 10^3/uL (0.2-0.9); Monocytes % 7.7 %; Neutrophils % 52.4 %; Nucleated Red Blood Cells % 0 %; Platelet Count 233 10^3/cmm (130-400); Red Blood Count 3.81 10^6/uL (4.1-5.3)
[2021-02-16 06:05] LABS: Alanine Aminotransferase 27 U/L (0-41); Albumin Level 2.7 g/dL (3.5-5.2); Alkaline Phosphatase 58 IU/L (40-130); Aspartate Amino Transferase 22 U/L (0-40); Blood Urea Nitrogen 16 mg/dL (8-23); C Reactive Protein 71.2 mg/L (0.0-4.9); Calcium 9.1 mg/dL (8.5-10.5); Carbon Dioxide 24 mmol/L (22-29); Chloride 110 mmol/L (98-107); Globulin 2.9 g/dL (1.3-4.6); Glucose 105 mg/dL (65-115); Magnesium 1.9 mg/dL (1.7-2.3); Osmolality Calculated 294 mOsm/kg (285-295); Phosphorus 2.4 mg/dL (2.5-4.5); Sodium 141 mmol/L (136-145); Total Bilirubin 0.3 mg/dL (0.15-1.2); Total Protein 5.6 g/dL (6.6-8.7)
[2021-02-16 06:31] LABS: Procalcitonin 0.61 ng/mL (0-0.5)
[2021-02-16 08:00] VITALS: BP 159/74; PULSE 55; RESP 18; TEMP 37.1; O2SAT 98
[2021-02-16] MEDS: amlodipine 10 mg Tablet PO (09:11)
[2021-02-16] MEDS: famotidine 20 mg Tablet PO (09:11)
--- NOTE | 2021-02-16 11:42 | PM.DCS ---
Discharge Providers Date of Admission: 02/14/21 01:43 Date of Discharge: February 16, 2021 Attending Provider at Admission: Francisco Lemus MD Attending Provider at Discharge: Francisco Lemus MD Diagnoses at Discharge Discharge Diagnosis (1) Altered mental status: Status: Acute Qualifiers: Altered mental status type: unspecified Qualified Code(s): R41.82 - Altered mental status, unspecified (2) COVID-19: Status: Acute Reason for Visit Reason for Visit: AMS Hospital Course Hospital Course This is a 80-year-old male with no significant past medical history, who presents to [facility] due to confusion Patient was admitted to [facility] due to confusion, 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 with some encephalopathy or brain fog associate with COVID-19 positivity -Patient had extensive evaluation for encephalopathy, initially some his encephalopathy was thought to be related to his CVA, however extensive imaging has not shown any acute stroke, no carotid artery stenosis, he has not had any focal neurologic deficits, nonetheless I have discharged him on aspirin, statin, with close follow-up with his general physician as outpatient, follow-up with neurology as outpatient -In terms of his dementia evaluation, patient had evidence of short-term memory loss, and three word recall he could only remember the first word, in completing complex tasks, he could only carry out a few of the tasks instructed, and clock face drawing as he would miss details such as placing numbers, we will have him follow-up with neurology as outpatient for extensive dementia evaluation -There was no significant infectious concerns, chest x-ray showed Covid related changes, he did not requiring oxygen, no significant cytosis, remained afebrile, he is relatively asymptomatic, no shortness of breath complaints, lungs clear to auscultation bilaterally. UA unremarkable for UTI, no significant electrolyte abnormalities, no significant EKG changes, no significant echocardiogram findings -Likely patient has had a slowly progressive dementia, with acute worsening associated with possible brain fog associated with COVID-19 -As patient did not require any oxygen and the oxygen during his hospitalization, no significant febrile episodes, he did qualify for bam infusion, and received it -For his hypertension, discharged on Norvasc 10 mg daily, lisinopril 10 mg daily with close follow-up with general medical doctor as outpatient to recheck blood pressure - Physical Exam Const: COMMON NORMALS: no acute distress and patient oriented x3 Resp: COMMON NORMALS: normal respiratory effort, No retractions, No use of accessory muscles and clear to auscultation bilaterally AUSCULTATION: clear to auscultation bilaterally Cardio: COMMON NORMALS: regular rate, regular rhythm, S1 normal heart sound present and S2 normal heart sound present RATE: regular rate RHYTHM: regular rhythm HEART SOUNDS: S1 normal heart sound present and S2 normal heart sound present GI: COMMON NORMALS: Normal to inspection, nondistended, normoactive bowel sounds present, Soft to palpation, non-tender and No hepatosplenomegaly present PALPATION: Yes Soft to palpation and Yes No hepatosplenomegaly present Extremity: COMMON NORMALS: no pedal edema Neuro: COMMON NORMALS: patient oriented x3 Discharge Data Data Completed and Pending: Completed Studies During Hospitalization Category Date Time Status CT angio headneck * [id number]/[id number] Urge nt Cat Scan 02/14/21 03:[address] head wo con* [id number] Urgent Cat Scan 02/14/21 00:[address] lumbar spine w o con* [id number] Urgen t Cat Scan 02/14/21 00:02 Completed XR chest 1V liza ble [id number] Urgent Exams 02/14/21 00:02 Completed MR head wo con* [id number] Routine MRI 02/15/21 15:47 Completed CV. echo complete * [id number] Routine Ultrasound 02/14/21 03:04 Completed Pending at discharge Category Date Time Status Blood Culture Sta t Lab 02/14/21 00:44 Results C Reactive Protei n AM LABS Lab 02/17/21 04:00 Ordered Complete Blood Co unt w/Auto AM LABS Lab 02/17/21 04:00 Ordered Comprehensive Met abolic Panel AM LA BS Lab 02/17/21 04:00 Ordered Magnesium AM LABS Lab 02/17/21 04:00 Ordered Phosphorus AM LAB S Lab 02/17/21 04:00 Ordered Procalcitonin AM LABS Lab 02/17/21 04:00 Ordered Sputum Culture an d Gram Stain Stat Lab 02/14/21 18:32 Results Tick Panel Stat Lab 02/15/21 05:25 Received Vancomycin Trough Timed Lab 02/17/21 00:30 Ordered MR head wo con* [id number] Routine MRI 02/15/21 17:30 Unverified Labs from last 24 hours 02/16/21 02/16/21 02/16/21 05:30 05:30 05:30 WBC 4.0 RBC 3.81 L Hgb 11.7 Hct 36.8 L MCV 96.6 H MCH 30.7 MCHC 31.8 RDW 14.0 Plt Count 233 MPV 9.4 Neut % (Auto) 52.4 Lymph % (Auto) 33.7 [place] % (Auto) 7.7 Eos % (Auto) 5.5 Baso % (Auto) 0.5 Neut # (Auto) 2.10 Lymph # (Auto) 1.4 [place] # (Auto) 0.3 Eos # (Auto) 0.2 Baso # (Auto) 0.0 Nucleated RBC % (a uto) 0 Nucleated RBCs # 0.0 ESR Sodium 141 Potassium 4.0 Chloride 110 H Carbon Dioxide 24 Anion Gap 11.0 BUN 16 Creatinine 0.7 GFR Calculation Not Reportable Glucose 105 POC Glucose Calculated Osmolal ity 294 Calcium 9.1 Phosphorus 2.4 L Magnesium 1.9 Total Bilirubin 0.3 AST 22 ALT 27 Alkaline Phosphata se 58 C-Reactive Protein 71.2 H Total Protein 5.6 L Albumin 2.7 L Globulin 2.9 Procalcitonin 0.61 H Lyme Ab (Western B lot) E. chaffeensis IgG Ab E. chaffeensis IgM Ab E. chaffeensis Int erp E. chaffeensis Com ment Rickettsia IgG Ab Rickettsia IgM Ab 02/15/21 02/15/21 02/15/21 20:58 05:25 05:25 WBC RBC Hgb Hct MCV MCH MCHC RDW Plt Count MPV Neut % (Auto) Lymph % (Auto) [place] % (Auto) Eos % (Auto) Baso % (Auto) Neut # (Auto) Lymph # (Auto) [place] # (Auto) Eos # (Auto) Baso # (Auto) Nucleated RBC % (a uto) Nucleated RBCs # ESR 28 H Sodium Potassium Chloride Carbon Dioxide Anion Gap BUN Creatinine GFR Calculation Glucose POC Glucose 131 H Calculated Osmolal ity Calcium Phosphorus Magnesium Total Bilirubin AST ALT Alkaline Phosphata se C-Reactive Protein Total Protein Albumin Globulin Procalcitonin Lyme Ab (Western B lot) Pending E. chaffeensis IgG Ab Pending E. chaffeensis IgM Ab Pending E. chaffeensis Int erp Pending E. chaffeensis Com ment Pending Rickettsia IgG Ab Pending Rickettsia IgM Ab Pending Vitals: Last Vital Signs Temp 98.7 F 02/16/21 08:00 Pulse 55 L 02/16/21 08:00 Resp 18 02/16/21 08:00 BP 159/74 02/16/21 08:00 Pulse Ox 98 02/16/21 08:00 Discharge Plan Discharge Patient Disposition: Home Condition: Stable Prescriptions: New atorvastatin 40 mg Tablet 40 mg PO Q24H 30 Days Qty: 30 RF: 0 aspirin 81 mg Tablet,Delayed Release (Dr/Ec) 81 mg PO Q24H 30 Days Qty: 30 RF: 0 amlodipine 10 mg Tablet 10 mg PO DAILY 30 Days Qty: 30 RF: 0 lisinopril 10 mg tablet 10 mg PO DAILY 30 Days Qty: 30 RF: 0 Continued Vitamin C 500 mg Tablet 500 mg PO DAILY RF: 0 zinc 50 mg Capsule 50 mg PO DAILY RF: 0 Vitamin D3 25 mcg (1,000 unit) Tablet 25 mcg PO DAILY RF: 0 Discontinued aspirin 325 mg Tablet 325 mg PO PRN PRN (Reason: Headache) RF: 0 ibuprofen 200 mg Tablet 200 mg PO Q4H PRN (Reason: Pain) RF: 0 Discharge Orders: Discharge Order (Routine); Ordered 02/16/21 Ordered By: Francisco Lemus Referrals: Daylin Brennan, [facility] [Nurse Practitioner] - 02/23/21 11:00 am (Will need new patient appointment @ discharge.) Discharge Diet: Regular and Cardiac Discharge Activity: Resume usual activity Patient Instructions: Lisinopril (By mouth), Aspirin (By mouth), Amlodipine (By mouth), Atorvastatin (By mouth), Altered Mental Status (GEN), Opioid Safety Activity Restrictions/Additional Instructions: -Please follow-up with general medical physician in 1 week for recheck blood pressure -Please continue to socially isolate, self distance, dizziness, hand wash at least 2 weeks -Please follow-up with neurology as outpatient -If you have any worsening shortness of breath, fever, cough go to emergency room -If you continue to have episodes of confusion, please come back to emergency room Discharge Attestations Time Spent in Discharge Care*: less than 30 min Quality Metrics Clinical Quality Measures During this hospital stay, did patient experience: None Coding Level of Care Code Acute Chg FW DC note Diagnoses Altered mental status R41.82 Altered mental status type: unspecified COVID-19 U07.1
[2021-02-16 11:48] VITALS: BP 137/97; PULSE 85; RESP 17; TEMP 37; O2SAT 98
[2021-02-16] MEDS: lisinopril 10 mg Tablet PO (12:52)
--- NOTE | 2021-02-16 15:06 | PC.NURSE ---
patient and verbalized understanding of discharge instructions home medications and follow up appointments
--- NOTE | 2021-02-16 15:10 | PC.NURSE ---
patient received BAM infusion prior to discharge. verbal consent provided by patients Nessa, and witnessed by Belkys Flood RN. patient tolerated well. patient was observed for an hour after administration. No adverse reactions noted.
[2021-02-16 15:15] VITALS: BP 137/97; PULSE 85; RESP 17; TEMP 37; O2SAT 98
[2021-02-16 15:17] LABS: Lyme AB Screen <0.90 index
--- NOTE | 2021-02-17 10:12 | PC.SOCIAL ---
discharge follow up call made, spoke with patients . patient is doing ok, report some weakness. patient is taking all new medications as prescribed. is aware of discontinued aspirin 325 and ibuporfen. patients is aware of follow up appointment with Daylin Brennan. will discuss with pcp about neurology follow up, she isn't sure she wants him to see Dr. Hoang. She is also wanting outpatient physical therapy she will also discuss with pcp. went over quarantine with , that patient needs to remain in quarantine until 02-22.
[2021-02-19 22:13] LABS: E. Chaffeensis AB IGG <1:64; E. Chaffeensis AB IGM <1:20
[2021-02-24 16:58] LABS: RMSF IGG NOT DETECTED; RMSF IGM NOT DETECTED
== END 2021-02-16 15:17 | disposition home or self-care (01) | DRG 177 ==
LOC: ER 02-14 01:43 → MEDSURG 02-14 02:35
PROVIDERS: Admitting Provider Family Medicine; Emergency Provider Emergency Medicine; Visit Provider Family Medicine
DX: U07.1 COVID-19 (principal); G93.41 Metabolic encephalopathy; I21.4 Non-ST elevation (NSTEMI) myocardial infarction; Z87.891 Personal history of nicotine dependence; F03.90 Unspecified dementia, unspecified severity, without behavioral disturbance, psychotic disturbance, mood disturbance, and anxiety; I10 Essential (primary) hypertension
CPT/HCPCS: 36415; 36416; 70450; 70496; 70498; 70551; 71045; 72131; 80053; 80307; 81003; 82140; 82550; 82962; 83605; 83735; 83880; 84100; 84145; 84443; 84484; 85025; 85610; 85651; 86140; 86618; 86666; 86757; 87040; 87070; 87086; 87205; 92507; 92523; 92610; 93005; 93306; 96361; 96372; 96374; 97161; 97165; 97530; 97535; 99285; J0456; J0696; J1630; J1650; J1953; J2060; J3370; J7030; J7050; Q9967

== ENCOUNTER → 2021-03-09 11:27 | Outpatient (BNVA) | payer MEDICARE, SELFPAY | PROVIDERS: PCP Nurse Practitioner; Visit Provider Nurse Practitioner | DX: I10 Essential (primary) hypertension (principal) | CPT/HCPCS: 80053; 80061; 85025 ==

== ENCOUNTER → 2021-08-31 10:33 | Outpatient (BNVA) | payer MEDICARE, SELFPAY | PROVIDERS: PCP Nurse Practitioner; Visit Provider Nurse Practitioner | DX: I10 Essential (primary) hypertension (principal); L01.00 Impetigo, unspecified | CPT/HCPCS: 80053; 80061; 81000; 84443; 85025 ==

== ENCOUNTER → 2022-02-24 09:21 | Outpatient (BNVA) | payer MEDICARE, SELFPAY | PROVIDERS: PCP Nurse Practitioner; Visit Provider Nurse Practitioner | DX: I10 Essential (primary) hypertension (principal) | CPT/HCPCS: 80053; 80061; 85025 ==

== ENCOUNTER → 2022-10-04 10:16 | Outpatient (BNVA) | payer MEDICARE, SELFPAY | PROVIDERS: PCP Nurse Practitioner; Visit Provider Nurse Practitioner | DX: I10 Essential (primary) hypertension (principal) | CPT/HCPCS: 80053; 80061 ==

== ENCOUNTER → 2024-06-26 11:13 | Outpatient (BNVA) | payer MEDICARE, SELFPAY | PROVIDERS: PCP Nurse Practitioner; Visit Provider Nurse Practitioner Family | DX: R26.9 Unspecified abnormalities of gait and mobility (principal); R42 Dizziness and giddiness; R53.1 Weakness; R41.3 Other amnesia; I10 Essential (primary) hypertension; M54.9 Dorsalgia, unspecified; G89.29 Other chronic pain; M51.369 Other intervertebral disc degeneration, lumbar region without mention of lumbar back pain or lower extremity pain | CPT/HCPCS: 80053; 80061; 84443; 85025 ==

== ENCOUNTER 2024-07-23 09:27 | Outpatient (CLI) | payer MEDICARE, SELFPAY ==
--- NOTE | 2024-07-23 09:30 | MR_ITS ---
WS: [id number] MRI BRAIN WITHOUT CONTRAST HISTORY: R26.9 - Unspecified abnormalities of gait and mobility COMPARISON: 02/15/2021 TECHNIQUE: Diffusion imaging, multiplanar T1, T2 and FLAIR imaging obtained. No evidence for acute infarct or hemorrhage. Hodges-white matter differentiation is normal. Extensive periventricular and scattered subcortical white matter foci from small vessel disease. Moderate cerebral and cerebellar volume loss. Extra-axial and intra-axial spaces are dilated on the basis of atrophy. No inferior displacement of cerebellar tonsils. The sella turcica and pituitary gland are unremarkable. Dural venous sinuses and [place] of [place] demonstrate no abnormality on this unenhanced studies. Paranasal sinuses: Clear. Mastoid air cells: Normal. Calvarium and scalp: Intact. MR/MR head wo con* [id number] IMPRESSION: 1. No acute infarct or hemorrhage. 2. Moderate cerebral and cerebellar atrophy similar to the prior study. 3. Mild progression of small vessel ischemic disease since 2020. 4. Ventriculomegaly on the basis of atrophy.
== END 2024-07-23 09:28 | disposition home or self-care (01) ==
PROVIDERS: PCP Nurse Practitioner; Visit Provider Nurse Practitioner Family
DX: R26.9 Unspecified abnormalities of gait and mobility (principal); R42 Dizziness and giddiness; R53.1 Weakness; R41.3 Other amnesia; G31.89 Other specified degenerative diseases of nervous system; R93.0 Abnormal findings on diagnostic imaging of skull and head, not elsewhere classified
CPT/HCPCS: 70551

== ENCOUNTER → 2025-03-03 08:59 | Outpatient (BNVA) | payer MEDICARE, SELFPAY | PROVIDERS: PCP Nurse Practitioner; Visit Provider Dermatology | DX: L21.8 Other seborrheic dermatitis (principal); L82.1 Other seborrheic keratosis; D69.2 Other nonthrombocytopenic purpura; D18.01 Hemangioma of skin and subcutaneous tissue; D48.5 Neoplasm of uncertain behavior of skin | CPT/HCPCS: 11102; 99204 ==